=== PATIENT | female | born 1995 | race Caucasian/White ===

== ENCOUNTER → 2021-03-02 | Outpatient (CLI) | payer BC ==
--- NOTE | 2021-03-02 13:17 | DIREP ---
PROCEDURE:XRAY KNEE 3 VIEWS-RT COMPARISON:None. INDICATIONS:RT KNEE PAIN FINDINGS: BONES:Normal. JOINTS:A small joint effusion is seen. SOFT TISSUES:Normal. OTHER:No additional findings. CONCLUSION:There is a small joint effusion. No fracture or other bony abnormality is seen. Dictated by: Hua Jolley M.D. on 03/02/2021 at 01:16 PM
== END | disposition home or self-care (01) ==
LOC: RAD 12:08
PROVIDERS: ATTEND Nurse Practitioner Adult Health
DX: M25.461 Effusion, right knee (principal)
CPT/HCPCS: 73562-RT